=== PATIENT | male | born 1945 | race Caucasian/White ===

== ENCOUNTER 2018-03-16 13:19 | Emergency (ER) | payer OTHER, MEDICARE ==
[~2018-03-16] VITALS: Ht 175.3 cm; Wt 59.0 kg
[~2018-03-16 13:19] MED LIST: FURO40TA4 PO; GABA800T2 PO; POTA10CA PO
--- NOTE | 2018-03-16 13:20 | NUR ---
ARRIVAL PATIENT TO ROOM 4 VIA AMBULACE, PATIENT HAS HAD SEVERE ABDOMINAL PAIN IN THE RIGHT LOWER QUADRANT SINCE HIS CHANDLER ONE MONTH AGO. PATIENT HAS A HISTORY OF CANCER, HTN, COPD AND DIABETES. PATIENT IS NON COMPLIANT WITH HIS MEDICAL REGIMENS AND LIVES AT HOME WITH HIS . CALLED STATED SHE CAN NOT DRIVE OR WALK BECAUSE SHE HAS A BROKEN BACK. ASSESSMENT COMPLETED AT THIS TIME, AWAITING MD TAFOYA.
[2018-03-16] MEDS ORDERED: SUBLIMAZE IV STA (13:25)
[2018-03-16 13:27] VITALS: BP 140/61
--- NOTE | 2018-03-16 13:34 | ER.PDOC ---
General Chief Complaint: Abdomen Pain Stated Complaint: ABD PAIN Time seen by MD: 13:33 Source: patient Exam Limitations: no limitations History of Present Illness Timing/Duration: 1 week Severity/Quality: moderate Radiation: no radiation Associated Symptoms: nausea/vomiting Exacerbated by: food Relieved By: remaining still Allergies: Coded Allergies: No Known Allergies (Unverified , 09/22/16) Home Meds Reported Medications Gabapentin (GABAPENTIN) 800 Mg Tablet, 1 TAB PO BID, #90 TAB 3 Refills 09/22/16 Furosemide (FUROSEMIDE) 40 Mg Tablet, 1 TAB PO DAILY, #30 TAB 5 Refills 09/22/16 Potassium Chloride (POTASSIUM CHLORIDE) 10 Meq Capsule.er, 1 CAP PO DAILY, #90 CAP 1 Refill 09/22/16 Vital Signs First Vital Signs Date Time Temp Pulse Resp B/P (MAP) Pulse Ox O2 Delivery O2 Flow Rate FiO2 03/16/18 13:20 98.6 82 20 18 13:27 140/61 (87) 97 Room Air Last Vital Signs Date Time Temp Pulse Resp B/P (MAP) Pulse Ox O2 Delivery O2 Flow Rate FiO2 03/16/18 13:27 98.6 82 20 140/61 (87) 97 Room Air Past Medical History Medical History: cancer Surgical History: cholecystectomy, colon Family History Significant Family History: no pertinent family hx Social History Smoking: non-smoker, cigarettes, greater than 1 pack/day Alcohol Use: none Drug Use: none Reviewed Nursing Reviewed: Vital Signs, Abn. Noted All Other Systems: Reviewed and Negative Physical Exam General Appearance: No Apparent Distress, WD/WN HEENT: PERRL/EOMI, Normal ENT Inspection, TMs Normal, Pharynx Normal Neck: Non-Tender, Full Range of Motion, Supple, Normal Inspection Respiratory: chest non-tender, lungs clear, normal breath sounds, no respiratory distress, no accessory muscle use Cardiovascular: Normal Peripheral Pulses, Regular Rate, Rhythm, No Edema, No Gallop, No JVD, No Murmur Gastrointestinal: Tenderness (diffusely) Back: Normal Inspection, No CVA Tenderness, No Vertebral Tenderness Extremities: Normal Range of Motion, Non-Tender, Normal Inspection, No Pedal Edema, No Calf Tenderness, Normal Capillary Refill, Pelvis Stable Neurologic/Psychiatric: senior writer II-XII NML as Tested, No Motor/Sensory Deficits, Alert, Normal Mood/Affect, Oriented x 3 Skin: Normal Color, Warm/Dry Lymphatic: No Adenopathy Consult/PCP Time Consult/PCP Called: 18:00 Consult/PCP: DR WINN Course Vitals & review Data Vital Sign - Last 24 Hours 03/16/18 03/16/18 03/16/18 13:20 13:20 13:27 Temp 98.6 98.3 98.6 Pulse 82 82 Resp 20 20 20 B/P (MAP) 140/61 (87) Pulse Ox 97 O2 Delivery Room Air Departure Time of Disposition: 14:55 Disposition: 70 DISC/XFER TO ANOTH TYP [facility] Impression: Primary Impression: Abdominal abscess Condition: Improved Referrals: EMILIA SALAS MD (PCP) PRIMARY CARE PROVIDER Duration or Time Spent with Pa: 3 HRS SHERYL ZAPATA MD Mar 16, 2018 13:34
[2018-03-16] MEDS ORDERED: SUBLIMAZE ONE (13:38)
[2018-03-16 13:40] LABS: BASOPHIL % 0.5 % (0.0-0.2); EOSINOPHIL # 0.2 10^3/uL (0.0-0.2); EOSINOPHIL % 2.4 % (0.0-5.0); HEMOGLOBIN 12.9 g/dL (13.9-16.3); LYMPHOCYTES # 2.4 10^3/uL (1.0-4.8); LYMPHOCYTES % 30.7 % (24.0-44.0); MEAN CELL HGB 30.4 pg (26-34); MEAN CELL HGB CONCENTRATION 31.9 g/dL (33-37); MEAN CORP VOLUME 95.1 fL (78-100); MONOCYTES # 0.8 10^3/uL (0.3-0.8); MONOCYTES % 10.3 % (5.0-12.0); NEUTROPHIL # 4.4 10^3/uL (1.8-7.7); NEUTROPHILS % 55.8 % (41.0-85.0); RED CELL DISTRIBUTION WIDTH 15.8 % (11.5-14.5); WHITE BLOOD CELL 7.9 10^3/uL (4.5-11.0)
[2018-03-16 13:56] LABS: CALCIUM 9.8 mg/dL (8.4-10.5)
[2018-03-16] MEDS ORDERED: NS 1000ML 1,000 ML IV ONE (14:00)
[2018-03-16] MEDS ORDERED: NS 1000ML 1,000 ML ONE (14:11)
[2018-03-16] MEDS ORDERED: HUMULIN R SQ STA (14:46)
--- NOTE | 2018-03-16 16:10 | NUR ---
CT PT OVER TO CT
--- NOTE | 2018-03-16 16:17 | NUR ---
CT PATIENT BACK FROM CT
--- NOTE | 2018-03-16 16:25 | NUR ---
COLOSTOMY PATIENT COLOSTOMY CHANGED BY THIS NURSE.
[2018-03-16] MEDS ORDERED: HUMALOG MIX 75-25 VIAL SQ ONE (16:32)
--- NOTE | 2018-03-16 16:46 | DIREP ---
PROCEDURE:CT ABDOMEN/PELVIS W/O CONTRAST COMPARISON:[facility] [place], CT, CT ABD/PELVIS W/O, 09/22/2016, 09:13 PM. INDICATIONS:sbo TECHNIQUE:Axial images were created through the abdomen and pelvis without intravenous contrast material. Oral contrast was administered. Sagittal and coronal reconstructions were performed from source images. FINDINGS: LUNG BASES:No suspicious airspace consolidation or pleural effusion. Previously noted right middle lobe pulmonary nodule was not imaged. LIVER:No suspicious focal hepatic lesion. BILIARY:Previous cholecystectomy. PANCREAS:No suspicious pancreatic abnormality. SPLEEN:Punctate calcified granuloma throughout the spleen. The spleen is not enlarged. ADRENALS:The adrenal glands are unremarkable. URINARY TRACT:Bilateral renal vascular calcifications. Nephrolithiasis is not excluded. No ureteral or bladder calculi are identified. No hydronephrosis. No suspicious renal contour deforming lesion is identified. AORTA/VASCULAR:No aneurysmal dilatation. Fairly diffuse calcifications of the aorta. RETROPERITONEUM:No suspicious retroperitoneal lymphadenopathy. BOWEL/MESENTERY:No evidence for small bowel obstruction. Right lower quadrant end ostomy. Apparent postoperative changes of total/near total colectomy. There is an approximate 5.8 x 3.3 cm low-attenuation focus within the anterior aspect of the right mid abdomen, just superior to the level of the ostomy. This is located amongst multiple presumed small bowel loops. This does appear to demonstrate a rind of surrounding soft tissue and does raise concern for potential abscess. Solid lesion is considered less likely. There may be postoperative changes of the overlying right upper quadrant abdominal wall. No free air. ABDOMINAL WALL:Right abdominal ostomy. Potential postoperative changes of the right upper quadrant abdominal wall. No significant hernia. PELVIC ORGANS:Urinary bladder is mildly distended. The prostate gland is mildly prominent. Mild stranding of the presacral soft tissues is likely postoperative. No significant free fluid within the pelvis. BONES:No acute abnormality. CONCLUSION: 1. Postoperative changes of apparent total/sub total colectomy with a right lower quadrant end ostomy. No evidence for small bowel obstruction. There is an abnormal low-attenuation focus within the right anterior mid abdomen, near the ostomy which is most suspicious for abscess. This is amongst multiple small bowel loops with potential postoperative changes of the overlying abdominal wall. Soft tissue lesion is considered less likely. 2. Additional findings as above. Dictated by: Campos Dodson M.D. On 03/16/2018 at 04:30 PM
[2018-03-16 17:45] LABS: BILIRUBIN,URINE NEGATIVE (NEGATIVE); UROBILINOGEN,URINE NORMAL (NEGATIVE)
[2018-03-16 17:55] LABS: APPEARANCE,URINE CLOUDY (CLEAR); UA COLOR YELLOW (YELLOW)
[2018-03-16] MEDS ORDERED: ZOSYN 3.375 GRAM VIAL 3.375 GM in NS 100ML 100 ML IV SCH (18:00)
[2018-03-16] MEDS ORDERED: ZOSYN 3.375 GRAM VIAL IV ONE (18:09)
[2018-03-16] MEDS ORDERED: NS 250ML 250 ML IV ONE (18:10)
--- NOTE | 2018-03-16 18:25 | NUR ---
AMA PATIENT SIGNED AMA TO GO SMOKE, THIS NURSE INFORMED PATIENT THAT HE WOULD NOT BE ABLE TO GO OUT AND SMOKE AND THIS HOSPITAL IS A NO SMOKING CAMPUS, PATIENT WAS INFORMED HE COULD HAVE A NICOTINE PATCH, HE STATED, "YOU CAN'T STOP ME." THIS NURSE EXPLAINED THAT HE WOULD HAVE TO REREGISTER IF HE LEFT CAMPUS TO SMOKE. PATIENT LEFT THE HOSPITAL OUT OF THE AMBULANCE BAY. THIS NURSE FOLLOW PATIENT OUTSIDE AND AGAIN EXPLAINED THAT PATIENT COULD NOT LEAVE HOSPITAL CAMPUS TO GO SMOKE AND WAS [facility]WAIT[facility], PATIENT STATED HE WOULD SIGN OUT TO GO SMOKE. THIS NURSE GOT THE AMA FORM FOR PATIENT TO SIGN, LENA RUVALCABA TOOK PATIENT IV OUT. PATIENT LEAVING AMA.
== END 2018-03-16 18:25 | disposition left against medical advice (07) ==
LOC: ER 13:19 → EDBD 13:19 → ER 18:25
DX: L02.211 Cutaneous abscess of abdominal wall (principal); Z90.49 Acquired absence of other specified parts of digestive tract; Z79.899 Other long term (current) drug therapy
CPT/HCPCS: 36415; 74176; 80053; 80307; 81000; 82150; 83690; 85025; 85610; 85730; 86677; 87086; 96361; 96372; 96374; 99285; J1815; J2543 ×2; J3010; J7030; J7050 ×2; Q9963